=== PATIENT | male | born 1975 | race Caucasian/White ===

== ENCOUNTER 2020-05-10 15:30 | Outpatient (RCR) | payer OTHER ==
[~2020-05-10 15:30] MED LIST: NO HOME MEDICATIONS
== END 2020-07-07 | disposition still patient (30) ==
LOC: WSC
DX: S52.602D Unspecified fracture of lower end of left ulna, subsequent encounter for closed fracture with routine healing (principal)

== ENCOUNTER 2021-01-06 17:27 | Emergency (ER) | payer SELFPAY ==
[~2021-01-06] VITALS: Ht 165.1 cm; Wt 104.5 kg
[2021-01-06] MEDS ORDERED: NAPROSYN500 MG PO (18:15)
[2021-01-06 18:36] VITALS: BP 168/64; PULSE 88; TEMP 98.7
== END 2021-01-06 18:40 | disposition home or self-care (01) ==
LOC: COL.ER 17:27
DX: M54.2 Cervicalgia (principal); X50.1XXA Overexertion from prolonged static or awkward postures, initial encounter; Y92.009 Unspecified place in unspecified non-institutional (private) residence as the place of occurrence of the external cause; Y99.0 Civilian activity done for income or pay